=== PATIENT | male | born 1970 | race Caucasian/White ===

== ENCOUNTER 2019-10-13 09:39 | Inpatient (IN) ==
[2019-10-13] MEDS ORDERED: NS 0.9% 1000 ml BAG 1,000 ML IV ONE (09:47)
[2019-10-13] MEDS ORDERED: Iodixanol (CONTRAST) 320 MG/ML 100 ML SDV IV ONE (10:03)
[2019-10-13 10:38] LABS: ABS Basophils 0.1 10^3/ul (0-0.2); ABS Eosinophils 0.4 10^3/ul (0-0.6); ABS Lymphocytes 2.3 10^3/ul (1.0-4.8); ABS Monocytes 0.8 10^3/ul (0-0.8); Eosinophil % 3.7 %; Hematocrit 34 % (42-52); Hemoglobin 11.9 g/dL (14.0-18.0); Lymphocyte % 23.5 %; Mean Corpuscular HGB Conc 35 g/dL (31-36); Mean Corpuscular Hemoglobin 29 pg (27-31); Mean Corpuscular Volume 83 fL (80-94); Mean Platelet Volume 9.4 fL (7.4-10.4); Nucleated Red Blood Cells % 0.2; Platelet Count 232 10^3/uL (150-450); Red Blood Count 4.12 10^6 /uL (4.18-5.48); Red Cell Distribution Width 14 % (10-15); White Blood Count 9.8 10^3/uL (3.5-10.8)
[2019-10-13 10:47] LABS: Activated Partial Thrombo Time 49.7 seconds (26.0-38.0); INR 1.07 (0.82-1.09)
[2019-10-13 11:00] LABS: Albumin 3.8 g/dL (3.2-5.2); Albumin/Globulin Ratio 1.2 (1-3); BUN/Creatinine Ratio 28.2 (8-20); Calcium 9.3 mg/dL (8.6-10.3); Globulin 3.3 g/dL (2-4); HDL Cholesterol 30.3 mg/dL; Potassium 4.4 mmol/L (3.5-5.0); Total Bilirubin 0.2 mg/dL (0.2-1.0); Total Protein 7.1 g/dL (6.4-8.9)
[2019-10-13] MEDS ORDERED: Dextrose 50% Syringe 50 ml 25 GM/50 ML SYRINGE IV PUSH PRN (12:26)
[2019-10-13] MEDS ORDERED: Prochlorperazine 5 mg/ml 2 ml VIAL (10 mg) IV PRN (12:29)
[2019-10-13] MEDS: Nicotine PATCH 14 MG/24 HR PATCH TRANSDERM SCH (15:17)
[2019-10-13] MEDS ORDERED: Perflutren Lipid Microsphere 3 ML VIAL ONE (16:00)
[2019-10-13] MEDS: Insulin LISPRO 100 units/ml(*) SUBCUT SCH ×2 (17:05→21:04)
[2019-10-13] MEDS: Gemfibrozil 600 mg PO SCH (18:32)
[2019-10-13] MEDS: CMCS: Dorzolamide/Timolol OPTH (NF) 10 ML BOT BOTH EYES SCH (21:01)
[2019-10-14] MEDS: Nicotine PATCH 14 MG/24 HR PATCH TRANSDERM SCH (08:18)
[2019-10-14] MEDS: Insulin LISPRO 100 units/ml(*) SUBCUT SCH ×4 (08:18→21:02)
[2019-10-14] MEDS: Gemfibrozil 600 mg PO SCH (08:20)
[2019-10-14] MEDS ORDERED: Insulin GLARGINE 100 un/ml (*) 10 ml VIAL SUBCUT SCH (09:00)
[2019-10-14 09:31] LABS: C Reactive Protein 17.91 mg/L (<8.01)
[2019-10-14 10:06] LABS: TSH (Thyroid Stimulating Horm) 4.72 mcIU/mL (0.34-5.60)
[2019-10-14 10:17] LABS: Folate > 20.00 ng/mL (>3.99)
[2019-10-14] MEDS: CMCS: Dorzolamide/Timolol OPTH (NF) 10 ML BOT BOTH EYES SCH ×2 (12:10→21:03)
[2019-10-14] MEDS: Heparin 5000 UNITS/ML VIAL(*) 1 ml vial SUBCUT SCH ×2 (13:02→21:02)
[2019-10-14 22:20] LABS: Urine Appearance Cloudy; Urine Bilirubin Negative (Negative); Urine Blood 1+ (Negative); Urine Color Yellow; Urine Glucose 3+(>=500 mg/dL) (Negative); Urine Ketones Negative (Negative); Urine Nitrite Negative (Negative); Urine Protein 3+(>=500 mg/dL) (Negative); Urine Specific Gravity 1.026 (1.010-1.030); Urine Urobilinogen Negative (Negative)
[2019-10-14 22:21] LABS: Urine Bacteria Absent (Absent); Urine Red Blood Cell Trace(0-2/hpf) (Absent); Urine White Blood Cell Trace(0-5/hpf) (Absent)
[2019-10-15] MEDS: Heparin 5000 UNITS/ML VIAL(*) 1 ml vial SUBCUT SCH ×3 (05:06→21:21)
[2019-10-15] MEDS: Nicotine PATCH 14 MG/24 HR PATCH TRANSDERM SCH (09:05)
[2019-10-15] MEDS: Insulin GLARGINE 100 un/ml (*) 10 ml VIAL SUBCUT SCH (09:21)
[2019-10-15] MEDS: Insulin LISPRO 100 units/ml(*) SUBCUT SCH ×4 (09:21→21:21)
[2019-10-15] MEDS: CMCS: Dorzolamide/Timolol OPTH (NF) 10 ML BOT BOTH EYES SCH ×2 (09:22→21:20)
[2019-10-15 15:42] LABS: LAC APTT 43 sec (25 - 37); LAC INR 1.1 (0.9-1.1); Prothrombin Time(LAC) 12.6 sec (9.4 - 12.5)
[2019-10-15 21:21] LABS: Phospholipid Ab IgG < 9.4 GPL; Phospholipid Ab IgM, S < 9.4 MPL
[2019-10-16] MEDS: Heparin 5000 UNITS/ML VIAL(*) 1 ml vial SUBCUT SCH ×3 (05:16→21:17)
[2019-10-16] MEDS: CMCS: Dorzolamide/Timolol OPTH (NF) 10 ML BOT BOTH EYES SCH ×2 (08:37→21:18)
[2019-10-16] MEDS: Nicotine PATCH 14 MG/24 HR PATCH TRANSDERM SCH (08:38)
[2019-10-16] MEDS: Insulin GLARGINE 100 un/ml (*) 10 ml VIAL SUBCUT SCH (08:39)
[2019-10-16] MEDS: Insulin LISPRO 100 units/ml(*) SUBCUT SCH ×7 (08:40→21:18)
[2019-10-16 17:14] LABS: Factor V Leiden Mutation Negative (Negative); Prothrombin 20210 Mutation Negative (Negative)
[2019-10-17] MEDS: Heparin 5000 UNITS/ML VIAL(*) 1 ml vial SUBCUT SCH ×3 (06:01→21:10)
[2019-10-17 06:41] LABS: Activated Partial Thrombo Time 53.8 seconds (26.0-38.0)
[2019-10-17] MEDS: Insulin LISPRO 100 units/ml(*) SUBCUT SCH ×7 (07:20→21:09)
[2019-10-17] MEDS: Insulin GLARGINE 100 un/ml (*) 10 ml VIAL SUBCUT SCH ×2 (08:54→21:09)
[2019-10-17] MEDS: CMCS: Dorzolamide/Timolol OPTH (NF) 10 ML BOT BOTH EYES SCH ×2 (08:54→21:09)
[2019-10-17] MEDS: Nicotine PATCH 14 MG/24 HR PATCH TRANSDERM SCH (08:59)
[2019-10-17 09:52] LABS: Complement C3 173 mg/dL (75 - 175)
[2019-10-17 09:54] LABS: INR 1.08 (0.82-1.09)
[2019-10-18] MEDS: Heparin 5000 UNITS/ML VIAL(*) 1 ml vial SUBCUT SCH ×3 (05:37→22:09)
[2019-10-18] MEDS: Insulin LISPRO 100 units/ml(*) SUBCUT SCH ×7 (09:17→22:09)
[2019-10-18] MEDS: Insulin GLARGINE 100 un/ml (*) 10 ml VIAL SUBCUT SCH ×2 (09:17→22:08)
[2019-10-18] MEDS: Nicotine PATCH 14 MG/24 HR PATCH TRANSDERM SCH (09:18)
[2019-10-18] MEDS: CMCS: Dorzolamide/Timolol OPTH (NF) 10 ML BOT BOTH EYES SCH ×2 (09:21→22:07)
[2019-10-19] MEDS: Heparin 5000 UNITS/ML VIAL(*) 1 ml vial SUBCUT SCH ×3 (05:30→20:03)
[2019-10-19 07:54] LABS: Hematocrit 36 % (42-52); Hemoglobin 12.6 g/dL (14.0-18.0); Mean Corpuscular HGB Conc 35 g/dL (31-36); Mean Corpuscular Hemoglobin 29 pg (27-31); Mean Corpuscular Volume 83 fL (80-94); Mean Platelet Volume 9.7 fL (7.4-10.4); Platelet Count 221 10^3/uL (150-450); Red Blood Count 4.31 10^6 /uL (4.18-5.48); Red Cell Distribution Width 14 % (10-15); White Blood Count 9.2 10^3/uL (3.5-10.8)
[2019-10-19 08:23] LABS: BUN/Creatinine Ratio 40.1 (8-20); Calcium 9.2 mg/dL (8.6-10.3); EGFR African American 61.6 (>60); EGFR Non-African American 50.9 (>60); Potassium 4.8 mmol/L (3.5-5.0)
[2019-10-19] MEDS: Nicotine PATCH 14 MG/24 HR PATCH TRANSDERM SCH (08:25)
[2019-10-19] MEDS: Insulin GLARGINE 100 un/ml (*) 10 ml VIAL SUBCUT SCH (08:26)
[2019-10-19] MEDS: CMCS: Dorzolamide/Timolol OPTH (NF) 10 ML BOT BOTH EYES SCH ×2 (08:26→20:01)
[2019-10-19] MEDS: Insulin LISPRO 100 units/ml(*) SUBCUT SCH ×7 (08:27→20:32)
[2019-10-19] MEDS ORDERED: Insulin GLARGINE 100 un/ml (*) 10 ml VIAL SUBCUT SCH (21:00)
[2019-10-20] MEDS: Heparin 5000 UNITS/ML VIAL(*) 1 ml vial SUBCUT SCH (05:25)
[2019-10-20] MEDS: CMCS: Dorzolamide/Timolol OPTH (NF) 10 ML BOT BOTH EYES SCH ×2 (08:14→19:43)
[2019-10-20] MEDS: Insulin GLARGINE 100 un/ml (*) 10 ml VIAL SUBCUT SCH (08:16)
[2019-10-20] MEDS: Insulin LISPRO 100 units/ml(*) SUBCUT SCH ×7 (08:16→20:55)
[2019-10-20] MEDS: Nicotine PATCH 14 MG/24 HR PATCH TRANSDERM SCH (08:18)
[2019-10-20] MEDS ORDERED: Enoxaparin 40 MG/0.4 ML SYR(*) SUBCUT SCH (21:00)
[2019-10-20 22:29] LABS: Coagulation F VIII Activity 208 % (55 - 200)
[2019-10-21 06:44] LABS: BUN/Creatinine Ratio 37.6 (8-20); EGFR African American 53.9 (>60); EGFR Non-African American 44.6 (>60); Magnesium 1.5 mg/dL (1.9-2.7); Potassium 4.4 mmol/L (3.5-5.0)
[2019-10-21 07:38] VITALS: BP 152/86
[2019-10-21] MEDS ORDERED: Magnesium Sulfate 2 gm BAG 2 GM/50 ML BAG IVPB ONE (07:52)
[2019-10-21] MEDS: CMCS: Dorzolamide/Timolol OPTH (NF) 10 ML BOT BOTH EYES SCH (08:45)
[2019-10-21] MEDS: Nicotine PATCH 14 MG/24 HR PATCH TRANSDERM SCH (08:45)
[2019-10-21] MEDS: Insulin LISPRO 100 units/ml(*) SUBCUT SCH ×2 (09:24)
[2019-10-21] MEDS: Insulin GLARGINE 100 un/ml (*) 10 ml VIAL SUBCUT SCH (09:25)
== END 2019-10-21 11:00 | DRG 45 ==
LOC: MEDTELE 09:39 → ED 09:39 → OBSVTOIN 12:55 → MEDTELE 13:33 → INTOOBSV 10-14 10:35
PROVIDERS: ADMIT Internal Medicine; ATTEND Internal Medicine